=== PATIENT | male | born 1995 | race Caucasian/White ===

== ENCOUNTER 2020-09-11 19:08 | Emergency (ER) | payer OTHER ==
[~2020-09-11] VITALS: Ht 182.9 cm; Wt 83.5 kg
[2020-09-11] MEDS ORDERED: CEPHALEXIN500 MG PO ×2 (19:38→20:01)
[2020-09-11 20:11] VITALS: BP 121/70
== END 2020-09-11 20:12 | disposition home or self-care (01) ==
LOC: M.ERS 19:08
DX: S01.111A Laceration without foreign body of right eyelid and periocular area, initial encounter (principal); S01.81XA Laceration without foreign body of other part of head, initial encounter; Z88.1 Allergy status to other antibiotic agents; W18.39XA Other fall on same level, initial encounter; Y93.89 Activity, other specified; Y92.89 Other specified places as the place of occurrence of the external cause; Y99.8 Other external cause status